=== PATIENT | male | born 2000 | race Hispanic/Latino ===

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

== ENCOUNTER 2020-06-20 20:25 | Emergency (ER) | payer MEDICAID, OTHER ==
[2020-06-20] MEDS ORDERED: HYDROXYZINE HCL 25 MG TABLET ONE (20:54)
[2020-06-20] MEDS ORDERED: PREDNISONE 20 MG TABLET ONE (20:54)
== END 2020-06-20 21:39 | disposition home or self-care (01) ==
LOC: EDH 20:25
DX: S30.861A Insect bite (nonvenomous) of abdominal wall, initial encounter (principal); S20.369A Insect bite (nonvenomous) of unspecified front wall of thorax, initial encounter; L50.0 Allergic urticaria; W57.XXXA Bitten or stung by nonvenomous insect and other nonvenomous arthropods, initial encounter; Y93.89 Activity, other specified; Y92.89 Other specified places as the place of occurrence of the external cause; Y99.8 Other external cause status